=== PATIENT | female | born 1995 | race Caucasian/White ===

== ENCOUNTER 2023-06-24 11:36 | Emergency (ER) | payer MEDICAID, OTHER ==
[~2023-06-24] VITALS: Ht 160 cm; Wt 68.0 kg
[2023-06-24 11:39] VITALS: BP 134/88; PULSE 83; RESP 19; TEMP 97.9; O2SAT 100
== END 2023-06-24 13:34 | disposition home or self-care (01) ==
LOC: ER 12:03
DX: S09.90XA Unspecified injury of head, initial encounter (principal); W18.30XA Fall on same level, unspecified, initial encounter; Y93.89 Activity, other specified; Y92.89 Other specified places as the place of occurrence of the external cause; Y99.8 Other external cause status
CPT/HCPCS: 99281

== ENCOUNTER 2023-08-05 10:50 | Emergency (ER) | payer MEDICAID, MEDICARE, OTHER ==
[~2023-08-05] VITALS: Ht 162.6 cm; Wt 63.5 kg
[2023-08-05 10:56] VITALS: BP 124/77; PULSE 93; RESP 16; TEMP 98.2; O2SAT 94
[2023-08-05] MEDS ORDERED: IBUPROFEN 600MG TABLET PO ONE (12:30)
[2023-08-05] MEDS ORDERED: IBUP-2029 MT (13:54)
== END 2023-08-05 16:05 | disposition home or self-care (01) ==
LOC: ER 11:21
DX: M25.511 Pain in right shoulder (principal)
CPT/HCPCS: 73030; 99283

== ENCOUNTER 2023-10-06 20:00 | Emergency (ER) | payer MEDICAID, MEDICARE ==
[~2023-10-06] VITALS: Ht 160 cm; Wt 68.0 kg
[~2023-10-06 20:00] MED LIST: IBUP-2029 MT
[2023-10-06 20:10] VITALS: TEMP 98.2; O2SAT 98
[2023-10-06] MEDS ORDERED: TOPUD MT (21:00)
[2023-10-06] MEDS ORDERED: LIDO700A15 TP (21:00)
[2023-10-06] MEDS ORDERED: IBUP-2028 MT (21:00)
[2023-10-06] MEDS: ACETAMINOPHEN 325MG TABLET PO ONE (21:31)
[2023-10-06 21:45] VITALS: BP 111/72; PULSE 94; RESP 16
== END 2023-10-06 21:46 | disposition home or self-care (01) ==
LOC: ER 20:00
DX: S16.1XXA Strain of muscle, fascia and tendon at neck level, initial encounter (principal); S09.90XA Unspecified injury of head, initial encounter; Y08.89XA Assault by other specified means, initial encounter; Y93.89 Activity, other specified; Y92.89 Other specified places as the place of occurrence of the external cause; Y99.8 Other external cause status
CPT/HCPCS: 99282

== ENCOUNTER 2024-01-10 07:31 | Emergency (ER) | payer MEDICAID ==
[~2024-01-10] VITALS: Ht 165.1 cm; Wt 68.0 kg
[~2024-01-10 07:31] MED LIST changes: +IBUP-2028 MT; +LIDO700A15 TP; +TOPUD MT
[2024-01-10 07:54] VITALS: BP 128/63; PULSE 83; RESP 18; TEMP 98; O2SAT 99
[2024-01-10] MEDS ORDERED: BENZ200C52 MT (07:58)
[2024-01-10] MEDS ORDERED: PSEU60TA99 MT (07:58)
== END 2024-01-10 15:14 | disposition home or self-care (01) ==
LOC: ER 07:52
DX: J06.9 Acute upper respiratory infection, unspecified (principal)
CPT/HCPCS: 99281

== ENCOUNTER 2024-03-03 23:55 | Emergency (ER) | payer SELFPAY ==
[~2024-03-03] VITALS: Ht 157.5 cm; Wt 69.0 kg
[~2024-03-03 23:55] MED LIST changes: +BENZ200C52 MT; +PSEU60TA99 MT
[2024-03-04] MEDS ORDERED: ACETAMINOPHEN 325MG TABLET PO ONE (00:15)
[2024-03-04 00:18] VITALS: O2SAT 99
[2024-03-04] MEDS ORDERED: NAPR-1129 MT (03:59)
[2024-03-04 05:15] VITALS: BP 128/56; PULSE 72; RESP 18; TEMP 97.8
[2024-03-04] MEDS ORDERED: ACETAMINOPHEN 325MG TABLET PO NR (05:45)
== END 2024-03-04 06:07 | disposition home or self-care (01) ==
LOC: ER 03-04 00:14
DX: S89.92XA Unspecified injury of left lower leg, initial encounter (principal); W01.0XXA Fall on same level from slipping, tripping and stumbling without subsequent striking against object, initial encounter; Y93.89 Activity, other specified; Y92.89 Other specified places as the place of occurrence of the external cause; Y99.8 Other external cause status
CPT/HCPCS: 73562; 73590; 99284; Z7610; L1830